=== PATIENT | female | born 1980 | race Two or more races ===

== ENCOUNTER 2025-05-05 19:36 | Emergency (ER) | payer MEDICAID, OTHER ==
[~2025-05-05] VITALS: Ht 162.6 cm; Wt 79.8 kg
[2025-05-05 20:02] VITALS: BP 185/108; PULSE 95; RESP 18; TEMP 97.8; O2SAT 100
--- NOTE | 2025-05-05 20:19 | ED.PDOC ---
Eye-HPI HPI Comments C/C: LEFT EYE SWELLING. DENIES PAIN. PATIENT STATES THAT THE SWELLING HAPPENED AFTER SHE WORE FAKE EYELASHES. DENIES DRAINAGE. SOME BLURRED VISION. PMH OF HTN, BP: 158/108, ALL OTHER VSS. Chief Complaint: Eye Problem Time Seen by MD: 19:48 Reviewed Notes: Nurses Notes, Medications, Allergies Allergies: Coded Allergies: NO KNOWN ALLERGIES (Unverified , 05/05/25) Information Source: Patient Mode of Arrival: Ambulatory X-Ray, Labs, Meds, VS Vital Signs Date Time Temp Pulse Resp B/P (MAP) Pulse Ox O2 Delivery O2 Flow Rate FiO2 05/05/25 20:02 97.8 95 18 185/108 (133) 100 97.8 Time of 1ST Reevaluation: 20:17 Reevaluation 1ST: Unchanged Patient Education/Counseling: Diagnosis, Treatment, Prognosis, Need For Follow Up Family Education/Counseling: No Family Present SEPSIS Sepsis Screen Date sepsis recognized/suspect: May 05, 2025 Time Sepsis recognized/suspect: 1950 Recent Procedure: No On Antibiotic Therapy: No Respiratory Rate >20: No Heart Rate >90: Yes Temp<36 C (96.8 F) or >38.3 C: No SBP <90 or MAP <65 mmHG: No New Acute Mental Status Change: No Is the patient on CPAP, BIPAP,: No Vital Signs Date Time Temp Pulse Resp B/P (MAP) Pulse Ox O2 Delivery O2 Flow Rate FiO2 05/05/25 20:02 97.8 95 18 185/108 (133) 100 97.8 Departure 1 Departure Disposition: 01 HOME / SELF CARE / HOMELESS Condition: Stable Discharged With: Self Critical Care Note Critical Care Time?: No Stability Stability form required: OZIEL Liz May 05, 2025 20:19
== END 2025-05-05 21:31 | disposition left against medical advice (07) ==
LOC: ER 19:36
DX: H57.9 Unspecified disorder of eye and adnexa (principal); Z53.21 Procedure and treatment not carried out due to patient leaving prior to being seen by health care provider